=== PATIENT | female | born 1990 | race African-American/Black ===

== ENCOUNTER → 2021-07-02 | Outpatient (CLI) | payer SELFPAY ==
--- NOTE | 2021-07-02 14:54 | Diagnostic Imaging Report ---
Indication: Right hand pain. COMPARISON: None FINDINGS: Multiple radiographic views of the right hand were obtained. Evaluation is obscured by overlying radiopaque cast material. Age-indeterminate oblique oriented fracture of the proximal 5th metacarpal is identified. There is mild displacement of the fracture fragments. There is no appreciable bridging callus formation or other evidence of significant healing. There is no prior available for comparison. Joint spaces are maintained. No unexpected radiopaque foreign bodies are seen. IMPRESSION: 1. 5th metacarpal fracture as described above. Dictated by: Dictated on workstation # [id number]
== END ==
LOC: RAD FS 10:35
PROVIDERS: ATTEND Nurse Practitioner
DX: S62.326A Displaced fracture of shaft of fifth metacarpal bone, right hand, initial encounter for closed fracture (principal); X58.XXXA Exposure to other specified factors, initial encounter
CPT/HCPCS: 73130

== ENCOUNTER → 2021-07-22 | Outpatient (CLI) | payer SELFPAY ==
--- NOTE | 2021-07-22 12:49 | Diagnostic Imaging Report ---
INDICATION: Fifth metacarpal fracture. Four views of the right hand are obtained and compared with 07/02/2021. FINDINGS: Overlying cast has been removed. The fifth metacarpal oblique fracture is unchanged in alignment, with about 4 mm of offset. There is some early callus formation. Remaining structures are intact. IMPRESSION: Unchanged alignment of the fifth metacarpal fracture with about the same degree of offset. There is some early callus formation. No other abnormal finding. Dictated by: Dictated on workstation # [id number]
== END ==
LOC: RAD FS 08:49
PROVIDERS: ATTEND Nurse Practitioner
DX: S62.326A Displaced fracture of shaft of fifth metacarpal bone, right hand, initial encounter for closed fracture (principal); X58.XXXA Exposure to other specified factors, initial encounter
CPT/HCPCS: 73130

== ENCOUNTER → 2022-08-06 | Outpatient (CLI) | payer BC ==
--- NOTE | 2022-08-06 18:23 | Diagnostic Imaging Report ---
INDICATION: Wrist pain. EXAMINATION: Three views were obtained. FINDINGS: The alignment is normal. There is no fracture or dislocation. The soft tissues are unremarkable. IMPRESSION: No focal abnormality in the right wrist. Dictated by: Dictated on workstation # [id number]
== END ==
LOC: RAD FS 16:54
PROVIDERS: ATTEND Orthopaedic Surgery
DX: M25.531 Pain in right wrist (principal)
CPT/HCPCS: 73110

== ENCOUNTER → 2022-08-20 | Outpatient (CLI) | payer BC ==
[~2022-08-20] VITALS: Ht 165.1 cm; Wt 59.1 kg
[~2022-08-20] MED LIST: GADOTERATE 0.5 MMOL/ML (CLARISCAN) 15 ML VIAL IV ONE; IOHEXOL 300 MG/ML 50 ML (OMNIPAQUE 300) VIAL IV ONE; LIDOCAINE 1% INJ 10 ML VIAL INJ ONE; LIDOCAINE 1% INJ 10 ML VIAL ONE
--- NOTE | 2022-08-20 14:22 | Diagnostic Imaging Report ---
Indication: Right wrist pain. Patient brought to the procedure room placed on table in the prone position. The dorsum of the right wrist was prepped and draped in usual sterile fashion. Small amount 1% lidocaine was utilized for local anesthesia. Approximately 4 mL of a solution of iodinated contrast, normal saline and gadolinium was injected into the right wrist in the radiocarpal space under fluoroscopic observation. 15 seconds of fluoroscopic time was utilized. Single image was obtained demonstrating normal distribution of contrast throughout the carpus. Needle was withdrawn and hemostasis was obtained. Patient tolerated the procedure well and was sent to MRI in satisfactory condition. IMPRESSION: Successful right wrist injection of gadolinium contrast solution, using fluoroscopy. Dictated by: Dictated on workstation # [id number]
== END ==
LOC: RAD 13:15
PROVIDERS: ATTEND Orthopaedic Surgery
DX: S69.81XA Other specified injuries of right wrist, hand and finger(s), initial encounter (principal); X58.XXXA Exposure to other specified factors, initial encounter
CPT/HCPCS: 25246; 73115; 73222